=== PATIENT | male | born 1995 | race Two or more races ===

== ENCOUNTER 2018-01-15 17:49 | Emergency (ER) | payer SELFPAY ==
[2018-01-15] MEDS ORDERED: Albuterol 0.083% 2.5 MG/3 ML Neb Soln NEB ONE (18:22)
--- NOTE | 2018-01-15 19:04 | EDM.PDOC ---
ED HPI GENERAL MEDICAL PROBLEM - General Chief Complaint: Respiratory Problem Stated Complaint: SOB/ COUGH/CHILLS Time Seen by Provider: 01/15/18 18:20 Source of Information: Reports: Patient History Limitations: Reports: No Limitations - History of Present Illness INITIAL COMMENTS - FREE TEXT/NARRATIVE: Patient is a 22-year-old male presents ED complaining of cough, runny nose, sinus congestion, wheezing, and chills on intermittent basis. States symptoms came on yesterday while working at [employer]. Patient is working outside in the cold with no jacket and hat. Patient has been employed with [employer] for three days and states today he was not able to work due to illness. He has been using advair as prescribed for asthma. He has not been utiizing albuterol inhaler since his symptoms have not been that bad. He needs a work note with discharge from the ED. Patient continues to smoke 4 cigarettes a day. Alcohol use none. Recreational drug use none. Generalized Pain Score (Numeric/FACES): 4 - Related Data Allergies Allergy/AdvReac Type Severity Reaction Status Date / Time No Known Allergies Allergy Verified 01/15/18 17:59 Home Meds: Home Meds . [No Known Home Meds] 01/15/18 [History] Past Medical History Respiratory History: Reports: Asthma Social & Family History - Tobacco Use Smoking Status *Q: Current Every Day Smoker Years of Tobacco use: 6 Packs/Tins Daily: 0.3 - Caffeine Use Caffeine Use: Reports: Soda, Tea - Recreational Drug Use Recreational Drug Type: Reports: Marijuana/Hashish ED ROS GENERAL - Review of Systems Review Of Systems: See Below Constitutional: Reports: Chills. Denies: Fever, Malaise, Decreased Appetite HEENT: Reports: Rhinitis, Sinus Problem (Congestion), Throat Pain (Mild). Denies: Ear Pain, Nosebleed Respiratory: Reports: Wheezing, Cough, Sputum. Denies: Shortness of Breath Cardiovascular: Reports: No Symptoms GI/Abdominal: Reports: No Symptoms Musculoskeletal: Reports: No Symptoms Skin: Reports: No Symptoms ED EXAM, GENERAL - Physical Exam Exam: See Below Exam Limited By: No Limitations General Appearance: Alert, WD/WN, No Apparent Distress Eye Exam: Bilateral Eye: Normal Inspection Ears: Normal External Exam, Normal Canal, Hearing Grossly Normal, Normal TMs Nose: Normal Inspection, Nasal Swelling, Nasal Drainage, Clear Rhinorrhea. No: Nasal Tenderness Throat/Mouth: Normal Voice, No Airway Compromise, Other (Slight erythema noted to the posterior pharynx with a few exudative pockets.) Head: Atraumatic, Normocephalic Neck: Normal Inspection, Supple, Non-Tender, Full Range of Motion, Lymphadenopathy (R). No: Lymphadenopathy (L) Respiratory/Chest: No Respiratory Distress, No Accessory Muscle Use, Wheezing ( Expiratory wheezes throughout.) Cardiovascular: Normal Peripheral Pulses, Regular Rate, Rhythm, No Murmur Peripheral Pulses: 2+: Radial (R) Back Exam: Normal Inspection Extremities: Normal Inspection Neurological: Alert, Oriented, CN II-XII Intact, Normal Cognition Psychiatric: Normal Affect, Normal Mood Skin Exam: Warm, Dry, Intact, Normal Color, No Rash Course - Vital Signs Last Recorded V/S: Last Vital Signs Temp 98.9 F 01/15/18 17:57 Pulse 94 01/15/18 17:57 Resp 20 01/15/18 17:57 BP 117/85 01/15/18 17:57 Pulse Ox 97 01/15/18 17:57 - Orders/Labs/Meds Orders: Active Orders 24 hr Category Date Time Status RT Aerosol Therapy [RC] ASDIRECTED Care 01/15/18 18:23 Active CULTURE STREP A CONFIRMATION [] Stat Lab 01/15/18 18:23 Results STREP SCRN A RAPID W CULT CONF [] Stat Lab 01/15/18 18:23 Results Meds: Medications Discontinued Medications Generic Name Dose Route Start Last Admin Trade Name Freq PRN Reason Stop Dose Admin Albuterol 2.5 mg 01/15/18 18:22 Proventil Neb Soln NEB 01/15/18 18:23 ONETIME ONE - Re-Assessments/Exams Free Text/Narrative Re-Assessment/Exam: Patient has more likely a viral upper respiratory infection worsening his asthma. He has expiratory wheezes throughout his lung suarez. Patient is not short of breath. Vital signs are stable. In addition on examination of throat there is a few exudative pockets present. Some slight erythema noted. I have ordered a strep screen and also albuterol neb treatment. 01/15/18 19:14 strep screen was negative. Patient refused the albuterol neb treatment. He has a albuterol inhaler at home that he will use. I will discharge patient home with instructions as documented. The patient remained hemodynamically stable while under my care in the E.D. I discussed the concerning symptoms for which to returnto the E.D. with the patient. The patient verbalized understanding. All questions were answered. Departure - Departure Time of Disposition: 19:15 Disposition: Home, Self-Care 01 Condition: Good Clinical Impression: Viral upper respiratory tract infection with cough, Wheezing - Discharge Information Instructions: Steps to Quit Smoking, [id number], Asthma, Adult, Upper Respiratory Infection, Adult, Cough, Adult Referrals: PCP,None [Primary Care Provider] - Forms: ED Department Discharge, ED Return to Work/School Form Additional Instructions: Strep screen was negative. Suspect you have a viral upper respiratory infection. Continue taking the Advair and also albuterol inhaler as prescribed. Quit smoking. Push fluids. Follow-up with PCP this coming week for reevaluation. Please return back to the ED if you develop any new or worsening symptoms. - My Orders Last 24 Hours: My Active Orders 01/15/18 18:23 RT Aerosol Therapy [RC] ASDIRECTED CULTURE STREP A CONFIRMATION [RM] Stat STREP SCRN A RAPID W CULT CONF [RM] Stat - Assessment/Plan Last 24 Hours: My Active Orders 01/15/18 18:23 RT Aerosol Therapy [RC] ASDIRECTED CULTURE STREP A CONFIRMATION [RM] Stat STREP SCRN A RAPID W CULT CONF [RM] Stat
== END 2018-01-15 19:28 | disposition home or self-care (01) ==
LOC: JD.ED 17:49
DX: J06.9 Acute upper respiratory infection, unspecified (principal); F17.210 Nicotine dependence, cigarettes, uncomplicated
CPT/HCPCS: 87077; 87081; 87430; 99284-25